=== PATIENT | female | born 2000 ===

== ENCOUNTER → 2025-01-13 | Outpatient (CLI) | payer BC, OTHER ==
[2025-01-13 23:48] LABS: C-REACTIVE PROTEIN, EXT RANGE 1.79 mg/dL (0.000-0.300); Total Iron Binding Capacity 318.0 ug/dL (250-450)
[2025-01-14 00:14] LABS: Ferritin, Serum 108.0 ng/mL (8-252)
[2025-01-15 06:08] LABS: ANTI-NUCLEAR AB ANA,IGG ELISA None Detected (None Detected)
== END ==
LOC: LAB 14:15 → LAB SHORT 14:15
DX: M25.50 Pain in unspecified joint (principal); R53.82 Chronic fatigue, unspecified
CPT/HCPCS: 82306; 82607; 82728; 82746; 83540; 83550; 85651; 86038; 86140; 86430